=== PATIENT | male | born 2000 | race Caucasian/White ===

== ENCOUNTER 2025-04-24 18:24 | Emergency (ER) | payer OTHER, SELFPAY ==
[2025-04-24 18:25] VITALS: BP 123/73; PULSE 57; RESP 18; TEMP 36.3; O2SAT 100; BMI 20.2
--- NOTE | 2025-04-24 18:37 | EX.ED.UPPERE ---
HPI History of Present Illness Chief Complaint: Upper Extremity Injury Detail of Chief Complaint: Left hand injury Informant: patient Narrative Narrative: Patient presents to the emergency department with injury to his left hand. Patient states that he went to urgent care and was referred to the emergency department. He states that he was at work lifting basically a large piece of concrete when he was dropped and landed onto his left hand crushing it. He is right-hand dominant. He was told at urgent care that his last tetanus shot was in 2014. PFSH PFSH Medical History no medical history Home Medications ?Medication ?Instructions ?Recorded ?Last Taken ?Type hydrocodone-acetaminophen 5-325mg 1 tab PO Q4H PRN PRN Pain 2 days 04/24/25 Unknown Rx 5mg-325mg #10 TABLETS hydrocodone-acetaminophen 5-325mg 1 tab PO Q4H PRN PRN Pain 2 days 04/24/25 Unknown Rx 5mg-325mg #10 TABLETS Allergy/AdvReac Type Severity Reaction Status Date / Time No Known Allergies Allergy Verified 04/24/25 18:25 Social History Smoking Status: Never smoker ROS ROS ED Review of Systems ROS Unobtainable: other Constitutional Constitutional ED: Reports lethargy; Denies chills, fever(s), sweats or weight loss Eyes Eyes: Denies blurry vision, change in vision or diplopia ENT ENT ED: Denies rhinorrhea or sore throat Cardiovascular Cardiovascular: Denies chest pain, orthopnea or racing heartbeat Respiratory/Chest Respiratory/Chest: Denies cough, dyspnea, dyspnea on exertion, orthopnea or sputum Gastrointestinal Gastrointestinal: Denies abdominal pain, diarrhea, nausea or vomiting Genitourinary Genitourinary ED: Denies dysuria, hematuria or urinary frequency Musculoskeletal Musculoskeletal: Reports other Details: Left hand injury ; Denies arthralgias, back pain, myalgias or neck pain Integumentary Denies abscess, Abrasions or rash Neurologic Neurologic: Denies headache(s) or weakness Psychiatric Psychiatric: Denies anxiety, depression or suicidal thoughts Endocrine Endocrinology: Denies polydipsia, polyphagia or polyuria Hematologic/Lymphatic Hematologic/Lymphatic: Denies easy bleeding, easy bruising or lymphadenopathy Allergic/Immunologic Allergic/Immunologic ED: Denies mouth swelling, tongue swelling or urticaria EXAM Physical Exam Const Vital Signs: 04/24/25 18:25 Temperature 97.3 F L Temperature Source Temporal Pulse Rate 57 L Respiratory Rate 18 Blood Pressure 123/73 H Blood Pressure Mean 89 Pulse Ox 100 Oxygen Delivery Method Room Air Positive well nourished and well developed General Appearance ED: well developed and NAD HEENT Reports TM's clear and moist mucous membranes normocephalic and atraumatic; Negative for trauma or tenderness Tympanic Membrane ED: Yes TM's clear Eyes PERRL and EOMs intact bilaterally General Eye ED: Negative for pale conjunctiva or scleral icterus Neck no lymphadenopathy, supple and no JVD General: Negative for tenderness Chest Wall inspection of chest normal and palpation of chest normal Chest: Negative for tenderness Resp normal respiratory effort and clear to auscultation bilaterally Effort and Inspection: Negative for respiratory distress or pain with movement Auscultation: Negative for rhonchi, wheezes or diminished lung sounds Cardio regular rate, regular rhythm, S1 normal heart sound, S2 normal heart sound and no murmurs Peripheral Pulses: pulses 2+ throughout GI normal to inspection, nondistended, normoactive bowel sounds, soft to palpation, non-tender, non-distended and no masses Back/Spine no CVA tenderness and no thoracic nor lumbar tenderness Extremity Extremity Narrative: Left hand-patient has tenderness palpation over the distal phalanx of the index finger as well as the DIP joint. Limited ability to flex the DIP joint secondary to pain. He has superficial abrasion just proximal to the nail. No subungual hematoma noted here. Evaluation of the long finger does reveal a 20% proximal subungual hematoma. He has tenderness over the distal phalanx. No obvious deformity. Neurovascularly intact. General Extremety ED: Negative for edema General Extremity: Negative for edema Neuro oriented x3, CN's II-XII intact bilaterally, no sensory deficits noted and gait normal Sensorium / Orientation: awake, alert, oriented to person, oriented to place and oriented to time Motor Exam: strength 5/5 throughout and strength abnormal Psych mental status grossly normal Skin no rashes or lesions noted and no wounds MDM MDM MDM Narrative Medical decision making narrative: Patient with crush injury to left index and middle finger. X-rays obtained showed fracture of the distal phalanx of the middle finger and left index finger with minimal displacement. Patient will be given aluminum splints. He will be given a prescription for Sheldon for pain. He will be referred for to orthopedics for follow-up. He will be given work restrictions. Radiography Diagnostic Testing: Three-view x-rays of the left hand obtained shows fracture of distal phalanx of middle finger and index finger. No significant displacement. Discharge Plan Triage Chief Complaint: Upper Extremity Injury ED Provider: Jonathan Hammond Dx/Rx/DC Orders Clinical Impression: Finger fracture, left Instructions: ED Crush Injury, Hand, ED Fracture, Finger, Closed Prescriptions: New hydrocodone-acetaminophen 5-325 mg tablet 1 tab PO Q4H PRN PRN (Reason: Pain) 2 Days Qty: 10 0RF hydrocodone-acetaminophen 5-325 mg tablet 1 tab PO Q4H PRN PRN (Reason: Pain) 2 Days Qty: 10 0RF Primary Care Provider: Hali Lombardo Referrals: Osito Vanegas DO [Med Staff - Active Staff] - 5-7 Days Print Language: [place] Disposition Disposition: Home, Self Care
--- NOTE | 2025-04-24 18:45 | RAD_ITS ---
PROCEDURE: HAND MIN 3 VIEWS 04/24/2025 REASON FOR EXAM: CRUSH INJURY TECHNIQUE: Three views of the left hand COMPARISON: None RAD/Hand Min 3 Views IMPRESSION: Nondisplaced fracture of the distal 2nd phalanx and tuft fracture of the distal 3rd phalanx. There is mild associated soft tissue edema. No dislocations. Chronic deformity of the ulnar styloid. No ra diographic foreign body. Reading Location: [id number]
[2025-04-24 19:08] VITALS: BP 120/62; PULSE 55; RESP 18; TEMP 36; O2SAT 100
== END 2025-04-24 19:15 | disposition home or self-care (01) ==
LOC: ED 19:08
PROVIDERS: Emergency Provider Emergency Medicine; PCP Psychiatry & Neurology Neurology; Visit Provider Emergency Medicine
DX: S62.633A Displaced fracture of distal phalanx of left middle finger, initial encounter for closed fracture (principal); S62.631A Displaced fracture of distal phalanx of left index finger, initial encounter for closed fracture; W23.2XXA Caught, crushed, jammed or pinched between a moving and stationary object, initial encounter; Y99.0 Civilian activity done for income or pay
CPT/HCPCS: 73130; 99283